=== PATIENT | male | born 1985 | race African-American/Black ===

== ENCOUNTER 2018-12-31 07:05 | Emergency (ER) | payer SELFPAY ==
[2018-12-31] MEDS ORDERED: VALACYCLOVIR HCL 500 MG TABLET PO ONE (08:47)
--- NOTE | 2018-12-31 09:59 | ER Document Report ---
Entered by TRISTON RADER SCRIBE 12/31/18 0844 Acting as scribe for:AYANNA SMITH MD ED Skin Rash/Insect Bite/Abscs - General Chief Complaint: Hives Stated Complaint: POSSIBLE ALLERGIC REACTION Time Seen by Provider: 12/31/18 08:34 Mode of Arrival: Ambulatory Information source: Patient Notes: 33-year-old male who presents to the emergency department today with complaints of "hives" on his right back that wraps around to his right abdomen, not crossing the midline. Patient states initially this area seemed to be more itchy and now they are painful, describing the pain as a burning sensation. Patient also mentions waking up with a sore throat this morning. TRAVEL OUTSIDE OF THE [place] IN LAST 30 DAYS: No - Related Data Allergies/Adverse Reactions: codeine Allergy (Verified 12/31/18 07:21) Past Medical History - General Information source: Patient - Social History Smoking Status: Never Smoker Cigarette use (# per day): No Frequency of alcohol use: None Drug Abuse: None Lives with: Family Family History: Reviewed & Not Pertinent Patient has suicidal ideation: No Patient has homicidal ideation: No Review of Systems - Review of Systems Constitutional: No symptoms reported EENT: See HPI, Throat pain Cardiovascular: No symptoms reported Respiratory: No symptoms reported Gastrointestinal: No symptoms reported Genitourinary: No symptoms reported Male Genitourinary: No symptoms reported Musculoskeletal: No symptoms reported Skin: See HPI, Lesions, Rash Hematologic/Lymphatic: No symptoms reported Neurological/Psychological: No symptoms reported -: Yes All other systems reviewed and negative Physical Exam - Vital signs Vitals: Temp Pulse Resp BP Pulse Ox 98.3 F 73 16 120/75 99 12/31/18 07:11 12/31/18 07:11 12/31/18 07:11 12/31/18 07:11 12/31/18 07:11 - Notes Notes: Physical Exam: General: Alert, appears well. HEENT: Normocephalic. Atraumatic. PERRL. Extraocular movements intact. Oropharynx clear. Uvula is shiny in appearance and somewhat edematous with erythema. There is some tonsillar fossa tissue erythema noted. There is no exudates. There are no ulcerations to suggest a disseminated zoster picture. Neck: Supple. Non-tender. No abnormal adenopathy palpated. Respiratory: No respiratory distress. Clear and equal breath sounds bilaterally. Cardiovascular: Regular rate and rhythm. Abdominal: Normal Inspection. Non-tender. No distension. Normal Bowel Sounds. Back: No gross abnormalities. Extremities: Moves all four extremities. Upper extremities: Normal inspection. Normal ROM. Lower extremities: Normal inspection. No edema. Normal ROM. Neurological: Normal cognition. AAOx4. Normal speech. Psychological: Normal affect. Normal Mood. Skin: Raised erythematous patches that follow the dermatome of T10, not crossing the midline, with vesicles. This area is sensitive to touch, patient describes the pain as a burning. Course - Vital Signs Vital signs: Temp Pulse Resp BP Pulse Ox 98.3 F 73 16 120/75 99 12/31/18 07:11 12/31/18 07:11 12/31/18 07:11 12/31/18 07:11 12/31/18 07:11 Discharge - Discharge Clinical Impression: Shingles outbreak Qualifiers: Herpes zoster complications: without complications Qualified Code(s): B02.9 - Zoster without complications Pharyngitis Qualifiers: Pharyngitis/tonsillitis etiology: unspecified etiology Qualified Code(s): J02.9 - Acute pharyngitis, unspecified Condition: Stable Disposition: HOME, SELF-CARE Additional Instructions: Sore Throat Sore throats may be caused by viruses, bacteria, or fungi. Most are due to a virus, and must get better on their own. Bacterial sore throats, particularly those due to "strep," need treatment with antibiotics. If an antibiotic is prescribed, be sure to take the medication for a full 10 days. Failure to take the antibiotic can result in complications such as rheumatic fever. Sometimes, an injection of antibiotics is given instead of pills or liquid. This single "shot" is equal in effectiveness to the oral medication. To relieve symptoms, take acetaminophen for pain. Sip clear liquids frequently, or eat popsicles or ice chips. Anesthetic sprays or lozenges may help. Make sure the air in the room is not too dry. Avoid using decongestants or antihistamines. Call the doctor if there is no improvement in two days, or if you have difficulty breathing, increasing throat pain, high fever, rash, or frequent vomiting. Shingles You have shingles. Shingles is caused by the chicken pox virus, The virus has been surviving dormant in a nerve cell since you had chicken pox years ago. The virus has spread down a nerve root to reach the skin. Typically, an band-like area of pain and skin sensitivity develops, then small blisters erupt in the area. Shingles lasts two or three weeks, but sometimes leaves persistent pain. You are contagious -- you can give children chicken pox. But you can't give anyone shingles. Antiviral medicines (such as acyclovir or famciclovir) can help, but the rash usually worsens for about a week. Pain medication is often given if the area hurts. Antihistamines such as Benadryl may be necessary for itching if it does not respond to soda baths and calamine lotion. Sometimes cortisone medicine or nerve-block shots are necessary if pain is severe. If the area remains severely painful as the sores heal, or if you suspect an infection developing in the sores, see your doctor. Take the valacyclovir tablets 1 every 8 hours for the next 7 days. You got a dose here in the emergency room so your next dose would be due about 8 PM tonight. Take Tylenol and ibuprofen for pain. Follow-up with a local primary care provider if not improving. RETURN TO THE EMERGENCY ROOM IF ANY NEW OR WORSENING SYMPTOMS. Prescriptions: Valacyclovir HCl [Valacyclovir] 1,000 mg PO Q8 #20 tablet Scribe Attestation: 12/31/18 09:18 I personally performed the services described in the documentation, reviewed and edited the documentation which was dictated to the scribe in my presence, and it accurately records my words and actions. I personally performed the services described in the documentation, reviewed and edited the documentation which was dictated to the scribe in my presence, and it accurately records my words and actions.
[2018-12-31 10:30] VITALS: BP 122/75
== END 2018-12-31 10:31 | disposition home or self-care (01) ==
LOC: ER 07:05
DX: B02.9 Zoster without complications (principal); J02.9 Acute pharyngitis, unspecified; Z88.6 Allergy status to analgesic agent
CPT/HCPCS: 87070; 87880; 99283

== ENCOUNTER 2019-11-09 17:27 | Emergency (ER) | payer OTHER ==
[2019-11-09] MEDS ORDERED: AMOXICILLIN TRIHYDRATE 500 MG CAPSULE PO ONE (18:17)
[2019-11-09] MEDS ORDERED: DEXAMETHASONE 4 MG TABLET PO ONE (18:17)
--- NOTE | 2019-11-09 18:17 | ER Document Report ---
ED ENT - General Stated Complaint: SORE THROAT/CHILLS/FEVERISH Notes: CHIEF COMPLAINT: Sore throat for 2 days HPI: 34-year-old male presenting to the emergency department complaining sore throat and painful swallowing over the last 2 days. Patient's girlfriend tested positive for strep throat 4 days ago. Patient has had low-grade fevers and body ache. ROS: See HPI - all other systems were reviewed and are otherwise negative Constitutional: Low-grade fever Eyes: no drainage, no blurred vision ENT: no runny nose, + sore throat Cardiovascular: no chest pain Resp: no SOB, no cough GI: no vomiting, no diarrhea, no abdominal pain : no dysuria Integumentary: no rash Allergy: no hives Musculoskeletal: no extremity pain or swelling Neurological: no numbness/tingling, no weakness MEDICATIONS: I agree with the patient medications as charted by the RN. ALLERGIES: I agree with the allergies as charted by the RN. PAST MEDICAL HISTORY/PAST SURGICAL HISTORY: Reviewed and agree as charted by RN. SOCIAL HISTORY: Reviewed and agree as charted by RN. FAMILY HISTORY: No significant familial comorbid conditions directly related to patient complaint EXAM: Reviewed vital signs as charted by RN. CONSTITUTIONAL: Alert and oriented and responds appropriately to questions. Well-appearing; well-nourished HEAD: Normocephalic; atraumatic EYES: PERRL; Conjunctivae clear, sclerae non-icteric ENT: normal nose; no rhinorrhea; moist mucous membranes; pharyngeal erythema is noted bilaterally pupils are small, no uvula edema or deviation, positive bilateral tonsillar hypertrophy, phonation normal NECK: Supple without meningismus; non-tender; + anterior cervical lymphadenopathy, no masses CARD: RRR; no murmurs, no clicks, no rubs, no gallops; symmetric distal pulses RESP: Normal chest excursion without splinting or tachypnea; breath sounds clear and equal bilaterally; no wheezes, no rhonchi, no rales, pulse oximetry 98% on room air not hypoxic ABD/GI: Normal bowel sounds; non-distended; soft, non-tender BACK: The back appears normal EXT: Normal ROM in all joints; no cyanosis, no effusions, no edema SKIN: Normal color for age and race; warm; dry; good turgor NEURO: Moves all extremities equally; Motor and sensory function intact PSYCH: The patient's mood and manner are appropriate. Grooming and personal hygiene are appropriate. MDM: 34-year-old male sore throat for 2 days positive strep contact. Will obtain strep test but plan to treat patient given the exposure TRAVEL OUTSIDE OF THE [place] IN LAST 30 DAYS: No - Related Data Allergies/Adverse Reactions: codeine Allergy (Verified 12/31/18 07:21) Past Medical History - Social History Smoking Status: Never Smoker Frequency of alcohol use: None Drug Abuse: None Family History: Reviewed & Not Pertinent Patient has homicidal ideation: No Past Surgical History: Reports: Hx Orthopedic Surgery - left knee x 2 Physical Exam - Vital signs Vitals: Temp Pulse Resp BP Pulse Ox 99.3 F 85 16 110/91 H 97 11/09/19 17:40 11/09/19 17:40 11/09/19 17:40 11/09/19 17:40 11/09/19 17:40 Course - Re-evaluation Re-evalutation: 11/09/19 19:08 Strep test is positive will continue on amoxicillin follow-up PCP - Vital Signs Vital signs: Temp Pulse Resp BP Pulse Ox 99.3 F 85 16 110/91 H 97 11/09/19 17:40 11/09/19 17:40 11/09/19 17:40 11/09/19 17:40 11/09/19 17:40 Discharge - Discharge Clinical Impression: Strep pharyngitis Condition: Stable Disposition: HOME, SELF-CARE Additional Instructions: 1. medicines as prescribed 2. take Motrin/Tylenol consistently for pain and fever 3. hydrate well at home with fluids/juices 4. recheck with your PCP for further evaluation and treatment, call for appt. 5. return to the ED for any difficulty swallowing or worsening condition 6. warm salt water gargles for throat discomfort 3 times daily Haldol 1 Prescriptions: Amoxicillin 1 tab PO TID #30 tab Forms: Return to Work Referrals: MAICOL WILCOX MD [ACTIVE STAFF] - Follow up as needed
[2019-11-09 19:26] VITALS: BP 136/71
== END 2019-11-09 19:25 | disposition home or self-care (01) ==
LOC: ER 17:27
DX: J02.0 Streptococcal pharyngitis (principal)
CPT/HCPCS: 99283; 87880; J8540